=== PATIENT | male | born 1980 | race African-American/Black ===

== ENCOUNTER → 2020-06-09 | Outpatient (CLI) | payer OTHER ==
--- NOTE | 2020-06-09 16:09 | Diagnostic Imaging Report ---
PROCEDURE: Ultrasound-guided biopsy Procedural Personnel Attending physician(s): Trinity Arvizu MD Fellow physician(s): None Resident physician(s): None Advanced practice provider(s): None Pre-procedure diagnosis: Right parotid mass, right neck lymphadenopathy Post-procedure diagnosis: Same Indication: Histopathologic diagnosis Previous biopsy of same target (QCDR): No Additional clinical history: None Complications: No immediate complications. IMPRESSION: Ultrasound-guided biopsy of right cervical lymphadenopathy. 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 Plan: Specimen(s) sent for evaluation. PROCEDURE SUMMARY: - Percutaneous US-guided right neck lymph node biopsy - Additional procedure(s): None PROCEDURE DETAILS: Pre-procedure Reference imaging for biopsy target: None Consent: Informed consent for the procedure including risks, benefits and alternatives was obtained and time-out was performed prior to the procedure. Preparation: The site was prepared and draped using maximal sterile barrier technique including cutaneous antisepsis. Anesthesia/sedation Level of anesthesia/sedation: No sedation Anesthesia/sedation administered by: Independent trained observer under attending supervision with continuous monitoring of the patient?s level of consciousness and physiologic status Total intra-service sedation time (minutes): NA Imaging prior to biopsy The patient was positioned supine. Initial ultrasound was performed. Biopsy target: - Maximal diameter (cm): 2.2 - Location: Right cervical lymph node Other findings: None Biopsy Local anesthesia was administered. Under US guidance, the biopsy needle was advanced to the target and biopsy was performed. Coaxial needle: None Fine needle aspiration device: Chiba Fine needle size: 22g Number of FNA specimens: 4 On-site biopsy touch preparation: Yes Additional sampling recommendations: None Preliminary assessment of sample adequacy: Adequate Needle removal The biopsy needle was removed and a sterile dressing was applied. Tract embolization: None Imaging following biopsy Immediate post-biopsy ultrasound was performed. Post-biopsy imaging findings: No hematoma Additional Details Additional description of procedure: None Equipment details: None Specimens removed: Biopsy samples as detailed above Estimated blood loss (mL): Less than 10 Standardized report: [id number] Attestation Signer name: Trinity Arvizu MD I attest that I was present for the entire procedure. I reviewed the stored images and agree with the report as written. Signed by: Trinity Arvizu MD on 06/09/2020 4:06 PM
== END ==
LOC: US 13:34
PROVIDERS: ATTEND Otolaryngology
DX: D11.0 Benign neoplasm of parotid gland (principal)
CPT/HCPCS: 38505; 88112; 88172; 88173; 88305